=== PATIENT | female | born 1955 | race American Indian/Alaskan Native ===

== ENCOUNTER 2016-11-15 05:49 | Day surgery (SDC) | payer OTHER ==
[2016-11-11 09:01] LABS: Basophils % (Auto) 0.6 % (0.0-1.8); Eosinophils % (Auto) 5.1 % (0.0-4.3); Hematocrit 36.5 % (30.3-42.9); Hemoglobin 11.7 gm/dl (10.1-14.3); Mean Corpuscular HGB Conc 32 % (30-34); Mean Corpuscular Hemoglobin 27 pg (28-32); Mean Corpuscular Volume 84 fl (79-97); Platelet Count 268 K/mm3 (140-440); Red Blood Count 4.36 M/mm3 (3.65-5.03); Red Cell Distribution Width 14.5 % (13.2-15.2); White Blood Count 6.5 K/mm3 (4.5-11.0)
[2016-11-11 09:21] LABS: Alanine Aminotransferase 16 units/L (7-56); Albumin 4.2 g/dL (3.9-5); Albumin/Globulin Ratio 1.2 %; Alkaline Phosphatase 65 units/L (35-129); Anion Gap 15 mmol/L; Bilirubin,Total 0.2 mg/dL (0.1-1.2); Blood Urea Nitrogen 14 mg/dL (7-17); Calcium 9.6 mg/dL (8.4-10.2); Carbon Dioxide 30 mmol/L (22-30); Chloride 102.1 mmol/L (98-107); Glucose 93 mg/dL (65-100); Potassium 3.9 mmol/L (3.6-5.0); Sodium 143 mmol/L (137-145); Total Protein 7.7 g/dL (6.3-8.2)
--- NOTE | 2016-11-11 09:24 | Anesthesia Consultation ---
Anesthesia Consult and Med Hx Date of service: 11/15/16 - Airway Anesthetic Teeth Evaluation: Good ROM Head & Neck: Adequate Mental/Hyoid Distance: Adequate Mallampati Class: Class II Intubation Access Assessment: Good - Pulmonary Exam CTA: Yes - Cardiac Exam Cardiac Exam: RRR - Pre-Operative Health Status ASA Pre-Surgery Classification: ASA2 Proposed Anesthetic Plan: General - Cardiovascular System Hx Hypertension: Yes (since late 40s) Hx Heart Murmur: Yes (not heard today) - Central Nervous System Hx Psychiatric Problems: No - Other Systems Hx Alcohol Use: No Hx Cancer: No
[~2016-11-15 05:49] MED LIST: LACTATED RINGERS 1,000 ML IV SCH; PEPCID PO NR; VERSED IV NR
[2016-11-15] MEDS ORDERED: VERSED IV NR (06:00)
[2016-11-15] MEDS ORDERED: PEPCID PO NR (06:00)
[2016-11-15] MEDS ORDERED: NACL BACTERIOSTATIC INFILTRATI ONE (06:34)
[2016-11-15] MEDS ORDERED: ZOFRAN IV PRN (07:21)
--- NOTE | 2016-11-15 07:21 | Anesthesia Day of Surgery ---
Anesthesia Day of Surgery - Day of Surgery Patient Examined: Yes Patient H&P Reviewed: Yes Patient is NPO: Yes
[2016-11-15] MEDS ORDERED: DIPRIVAN 10 MG/ML IV ONE ×2 (07:23→08:51)
[2016-11-15] MEDS ORDERED: XYLOCAINE MPF 2% ONE (07:24)
[2016-11-15] MEDS ORDERED: CLEOCIN 900 MG/50 mL 50 ML IV NR (08:25)
[2016-11-15] MEDS ORDERED: GARAMYCIN 80 MG in NACL 0.9% 100 ML IV SCH (08:30)
[2016-11-15] MEDS ORDERED: NEO SYNEPHRINE/NS Syringe(OR USE) IV ONE (08:39)
[2016-11-15] MEDS ORDERED: NACL 0.9% IR ONE ×2 (08:39→09:06)
[2016-11-15] MEDS ORDERED: SUBLIMAZE ONE (08:47)
[2016-11-15] MEDS ORDERED: GARAMYCIN/NS 80 MG/100 ML 100 ML IV SCH (09:00)
[2016-11-15] MEDS ORDERED: DECADRON ONE (09:06)
[2016-11-15] MEDS ORDERED: ZOFRAN ONE (09:06)
[2016-11-15] MEDS ORDERED: ROBINUL ONE ×2 (09:06→09:21)
[2016-11-15] MEDS ORDERED: MARCAINE 0.5% INFILTRATI ONE ×2 (09:10)
[2016-11-15] MEDS ORDERED: ZEMURON IV ONE (09:21)
[2016-11-15] MEDS ORDERED: QUELICIN ONE (09:21)
[2016-11-15] MEDS ORDERED: BLOXIVERZ ONE (09:22)
[2016-11-15] MEDS ORDERED: LACTATED RINGERS 1,000 ML ONE (09:30)
[2016-11-15] MEDS: DILAUDID IV PRN ×4 (10:29→11:08)
--- NOTE | 2016-11-15 10:55 | Post Anesthesia Evaluation ---
- Post Anesthesia Evaluation Patient Participated: Yes Airway Patent: Yes Stable Respiratory Function: Yes Temp > 96.8F: Yes Pain Manageable: Yes Adequeate Hydration: Yes Anesthesia Complications: No Block Receding Appropriately: Not Applicable
--- NOTE | 2016-11-15 12:44 | Short Stay Summary ---
Short Stay Documentation Date of service: 11/15/16 - History H&P: obtained from office - Allergies and Medications Current Medications: Allergies Penicillins Allergy (Verified 11/10/16 08:57) pin sticking sensation Home Medications Medication Instructions Recorded Confirmed Last Taken Type Aspirin [Adult Low Dose Aspirin EC] 81 mg PO DAILY 11/10/16 11/10/16 11/09/16 History Ca/D3/Mag Ox/Zinc/Last Putter Away/Paco/Bor 1 each PO DAILY 11/10/16 11/15/16 2 Days Ago History [Calcium 600+D3 Plus Caplet] Lisinopril/Hydrochlorothiazide 1 tab PO QDAY 11/10/16 11/15/16 11/15/16 03:30 History [Zestoretic 20-25 mg] Lovastatin [Altoprev] 20 mg PO QPM 11/10/16 11/15/16 11/14/16 History Active Medications Famotidine (Pepcid) 20 mg PO PREOP NR Stop: 11/15/16 23:59 Last Admin: 11/15/16 06:42 Dose: 20 mg Hydromorphone HCl (Dilaudid) 0.25 mg IV Q10MIN PRN PRN Reason: Pain, Moderate (4-6) Stop: 11/15/16 18:00 Last Admin: 11/15/16 11:08 Dose: 0.25 mg Lactated Ringer's (Lactated Ringers) 1,000 mls @ 100 mls/hr IV DIRECT KURTIS Last Admin: 11/15/16 06:47 Dose: 100 mls/hr Clindamycin HCl (Cleocin 900 Mg/50 Ml) 50 mls @ 100 mls/hr IV ONCE NR Stop: 11/15/16 23:59 Gentamicin Sulfate/Sodium Chloride (Garamycin/Ns 80 Mg/100 Ml) 100 mls @ 200 mls/hr IV PREOP KURTIS Stop: 11/15/16 23:59 Midazolam HCl (Versed) 2 mg IV PREOP NR Stop: 11/15/16 23:59 Last Admin: 11/15/16 06:56 Dose: 2 mg Ondansetron HCl (Zofran) 4 mg IV ONCE PRN PRN Reason: Nausea And Vomiting Stop: 11/15/16 18:00 - Physical exam General appearance: no acute distress Integumentary: no rash Lungs: Normal air movement Breasts: deferred Gastrointestinal: normal, normoactive bowel sounds Female Genitourinary: deferred Rectal Exam: deferred Extremities: Full ROM Neurological: Normal gait - Brief post op/procedure progress note Date of procedure: 11/15/16 Pre-op diagnosis: endometrial cells on pap smear, postmenopausal female, stenotic cervical os Post-op diagnosis: same Procedure: EUA, diagnostic hysteroscopy, incidental uterine perforation at fundus, diagnostic laparoscopy, D&C under laparoscopic guidance Anesthesia: GETA Findings: small uterus, stenotic cervical os, thickened appearing endometrium Surgeon: JEEVAN PALOMINO Estimated blood loss: minimal Pathology: list (endometrial curretings) Specimen disposition: to lab Condition: stable - Disposition Condition at discharge: Good Disposition: DISCHARGED TO HOME OR [facility]
[2016-11-15 13:01] VITALS: BP 122/59
--- NOTE | 2016-11-15 20:37 | Operative Report ---
PREOPERATIVE DIAGNOSIS: Endometrial cells on Pap smear in a postmenopausal female with a stenotic cervical os. POSTOPERATIVE DIAGNOSIS: Endometrial cells on Pap smear in a postmenopausal female with a stenotic cervical os. PROCEDURE: EUA, diagnostic hysteroscopy with incidental uterine perforation at the level of the fundus, diagnostic laparoscopy, D and C under laparoscopic guidance. FINDINGS: The patient had a small uterus (approximately less than or equal to 5 cm) with a stenotic cervix. The endometrium appeared thickened. No other abnormalities were noted. SURGEON: Dee Belcher MD. CARDING UTILITY TENDER: None. ESTIMATED BLOOD LOSS: Minimal. PATHOLOGY: Endometrial curettings (sent to lab). CONDITION: Stable. INDICATIONS: The patient is a 61-year-old -[place] female with an abnormal finding of endometrial cells on her most recent Pap smear associated with a stenotic cervical os. She has been brought to the operating room for hysteroscopy, D and C. DESCRIPTION OF PROCEDURE: The patient was brought to the operating room where general anesthesia was administered without difficulty. She was prepared and draped in usual sterile fashion, positioned in the dorsal lithotomy position. A red rubber catheter was used to enter her bladder. A speculum was placed in the vagina. A single-tooth tenaculum was applied to the anterior lip of the cervix at the 12 o'clock position. Cervix was gently dilated. Upon hysteroscopy, it was noted at the fundus the appearance of fat. At this point, it was clear that the fundus had been perforated. At this point, the decision was made to proceed with a diagnostic laparoscopy to confirm that there was no injury, although there was low suspicion for one. Her abdomen was properly prepped and draped. A 5 mm trocar was then placed in the left lower quadrant, subcostal margin midclavicular line. Another 5 mm trocar was placed at the base of the umbilicus. The bowels elevated out of the pelvis. There was no injury to the bowel or any other structures. Hemostasis was noted. There was a very small puncture site noted at the right fundus. Under laparoscopic guidance, the D and C was completed using sharp curettage without further incident. Specimens were sent to the lab. All instruments removed from the abdomen and pelvis and the vagina. The patient tolerated the procedure well and was taken to the recovery room awake and in stable condition. JOB# [id number] FLR/HEATHER
== END 2016-11-15 13:00 | disposition home or self-care (01) ==
LOC: OR 05:49
PROVIDERS: ATTEND Obstetrics & Gynecology Gynecology
DX: N88.2 Stricture and stenosis of cervix uteri (principal); N85.8 Other specified noninflammatory disorders of uterus; I10 Essential (primary) hypertension; E78.00 Pure hypercholesterolemia, unspecified; M19.90 Unspecified osteoarthritis, unspecified site; Z98.890 Other specified postprocedural states
CPT/HCPCS: 36415; 58578; 80053; 85025; 88305; A4217; J0330; J1100; J1170; J1580; J2250; J2370; J2405; J2704; J2710; J3010; J7120